=== PATIENT | female | born 1970 | race Caucasian/White ===

== ENCOUNTER 2016-11-30 11:39 | Emergency (ER) | payer MEDICAID ==
[~2016-11-30] VITALS: Ht 157.5 cm; Wt 122.0 kg
[~2016-11-30 11:39] MED LIST: BENZ1TAB PO; BUPR150T3 PO; DEPA250T2 PO; GEOD80CA PO; MELO15 PO; POLY119S PO; RISP2TAB2 PO; SERT-129 PO
[2016-11-30 11:41] VITALS: BP 140/81; PULSE 113; RESP 16; TEMP 98.1; O2SAT 95
[2016-11-30] MEDS ORDERED: LOTR15T TOPICAL (12:37)
--- NOTE | 2016-11-30 12:38 | PD ---
HPI Chief Complaint: Skin Problem Time Seen by Provider: 12:34 Travel History International Travel<30 days: No Contact w/Intl Traveler<30days: No Traveled to known affect area: No History of Present Illness HPI 46-year-old female presents to the emergency department for evaluation of an itchy rash. She states that she has it on the top of her left breast as well as the top of her right foot. She states is itchy. Not painful. She denies any fevers or chills. She denies any other complaints at this time. PFSH Past Medical History Asthma: Yes Autoimmune Disease: No Blood Disorders: No Bipolar Disorder: Yes Anxiety: Yes Depression: Yes Cancer: No Cardiovascular Problems: No Chemotherapy: No Developmental Delay: Yes Diminished Hearing: No Endocrine: No Gastrointestinal Disorders: No Genitourinary: No Immune Disorder: No Musculoskeletal: Yes Neurologic: No Psychiatric: Yes Reproductive: Yes Respiratory: Yes Immunizations Current: No Radiation Therapy: No Sickle Cell Disease: No ?: Not Menopausal: No : 2 Para: 2 Past Surgical History AICD: No Section: Yes (X 1) Cholecystectomy: Yes Joint Replacement: No Pacemaker: No Other Surgery: No Social History Alcohol Use: No (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.) Tobacco Use: No Substance Use: No (crack previous 5 yrs sober) Allergies-Medications (Allergen,Severity, Reaction): Coded Allergies: Milk (Verified Allergy, Severe, Hives, 11/30/16) Penicillin (Verified Allergy, Severe, Hives, 11/30/16) Reported Meds & Prescriptions Reported Meds & Active Scripts Active Miralax 119 Gm Bottle (Polyethylene Glycol) 119 Gm Powd 17 Gm PO DAILY 14 Days 17 GRAMS = 1 TABLESPOON DISSOLVED IN 4 TO 8 OUNCES OF BEVERAGE Reported Depakote Delayed-Release (Divalproex Sodium) 250 Mg Tabec 250 Mg PO HS Mobic 15 Mg Tab (Meloxicam) 15 Mg Tab 15 Mg PO DAILY Take after a meal Risperdal (Risperidone) 2 Mg Tab 2 Mg PO HS Sertraline 100 mg (Sertraline HCl) 100 Mg Tab 100 Mg PO DAILY Geodon (Ziprasidone) 80 Mg Cap 80 Mg PO BID Cogentin (Benztropine Mesylate) 2 Mg Tab 2 Mg PO BID Bupropion Hcl Xl (Bupropion HCl) 150 Mg Tab 150 Mg PO DAILY Review of Systems Except as stated in HPI: all other systems reviewed are Neg Physical Exam Narrative GENERAL: Well-developed well-nourished female patient, ambulatory. Afebrile. SKIN: Warm and dry. Patient has erythematous scaly rash to the top of the left breast and a small area to the top of the right foot. No evidence of cellulitis. HEAD: Normocephalic. Atraumatic. EYES: No scleral icterus. No injection or drainage. NECK: Supple, trachea midline. No JVD or lymphadenopathy. CARDIOVASCULAR: Regular rate and rhythm without murmurs, gallops, or rubs. RESPIRATORY: Breath sounds equal bilaterally. No accessory muscle use. Lungs sounds are clear to auscultation. MUSCULOSKELETAL: No cyanosis, or edema. Data Data Last Documented VS Vital Signs Date Time Temp Pulse Resp B/P Pulse Ox O2 Delivery O2 Flow Rate FiO2 11/30/16 11:41 98.1 113 16 140/81 95 MDM Medical Decision Making Medical Screen Exam Complete: Yes Emergency Medical Condition: Yes Medical Record Reviewed: Yes Differential Diagnosis Contact dermatitis versus ringworm versus cellulitis versus scabies versus insect bites Narrative Course 46-year-old female presents to the emergency department for evaluation of itchy rash started 3 days ago stumbled her left breast and the top of her right foot. No evidence of cellulitis on exam. Symptoms are mild and physical exam is reassuring. Patient will be discharged with a prescription for Lotrisone cream. She is instructed to take Benadryl [id number] and follow-up with her primary care physician. Patient agrees to this plan. The patient was discharged in stable condition with instructions, including return instructions and follow up instructions. Diagnosis Primary Impression: Dermatitis Referrals: Primary Care Physician call for appointment Patient Instructions: Dermatitis (ED), General Instructions Additional Instructions: Take [id number] Benadryl 25-50 mg every 6-8 hours as needed for itching. He is prescribed cream as directed. Follow-up with your primary care physician. Return to the emergency department for any acute worsening of symptoms. Med/Other Pt SpecificInfo: Prescription(s) given Scripts Betamethasone-Clotrimazole Topical (Lotrisone Topical)1-0.05% Cream1 Applic TOPICAL BID #45 GM Ref 0 Prov:Lacey Matt 11/30/16 Disposition: 01 DISCHARGE HOME Condition: Stable Lacey Matt Nov 30, 2016 12:38
[2016-11-30 12:39] VITALS: PULSE 84
== END 2016-11-30 12:53 | disposition home or self-care (01) ==
LOC: NEPB 11:39
DX: L30.9 Dermatitis, unspecified (principal); F41.8 Other specified anxiety disorders
CPT/HCPCS: 99282

== ENCOUNTER 2017-06-14 07:13 | Emergency (ER) | payer MEDICAID ==
[~2017-06-14] VITALS: Ht 157.5 cm; Wt 115.0 kg
[~2017-06-14 07:13] MED LIST changes: +LOTR15T TOPICAL
[2017-06-14 07:15] VITALS: BP 137/86; PULSE 93; RESP 16; TEMP 98.1; O2SAT 98
--- NOTE | 2017-06-14 07:35 | PD ---
HPI Chief Complaint: Hip Injury Time Seen by Provider: 07:22 Travel History International Travel<30 days: No Contact w/Intl Traveler<30days: No Traveled to known affect area: No History of Present Illness HPI Patient comes emergency Department complaining of intermittent right low back pain ongoing for a month. Pain is sharp stabbing like in nature and occasionally radiates into her right hip. Patient denies any trauma, history of IV drug use, fevers, loss or change in bowel or bladder, abdominal pain, numbness or tingling anywhere, chest pain, shortness of breath, or previous episodes like this. Patient states she been using [id number] pain medications that seemed to help some, but it is not going away. Patient states she is unable to get in with her primary care doctor today so came to the emergency department instead. Pain is worse with certain movement. PFSH Past Medical History Asthma: Yes Autoimmune Disease: No Blood Disorders: No Bipolar Disorder: Yes Anxiety: Yes Depression: Yes Cancer: No Cardiovascular Problems: No Chemotherapy: No Developmental Delay: Yes Diminished Hearing: No Endocrine: No Gastrointestinal Disorders: No Genitourinary: No Immune Disorder: No Musculoskeletal: Yes Neurologic: No Psychiatric: Yes Reproductive: Yes Respiratory: Yes (ASTHMA) Immunizations Current: No Radiation Therapy: No Sickle Cell Disease: No Menopausal: No : 2 Para: 2 Past Surgical History AICD: No Section: Yes (X 1) Cholecystectomy: Yes Joint Replacement: No Pacemaker: No Other Surgery: No Social History Alcohol Use: No (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.) Tobacco Use: No Substance Use: No (crack previous 5 yrs sober) Allergies-Medications (Allergen,Severity, Reaction): Coded Allergies: milk (Verified Allergy, Severe, Hives, 06/14/17) penicillin G (Verified Allergy, Severe, Hives, 06/14/17) Reported Meds & Prescriptions Reported Meds & Active Scripts Active Medrol Dosepak (Methylprednisolone) 4 Mg Dspk 4 Mg PO DIRECTED Per Pharmacist direction Lotrisone Topical (Betamethasone/Clotrimazole) 1-0.05% Cream 1 Applic TOPICAL BID Miralax 119 Gm Bottle (Polyethylene Glycol) 119 Gm Powd 17 Gm PO DAILY 14 Days 17 GRAMS = 1 TABLESPOON DISSOLVED IN 4 TO 8 OUNCES OF BEVERAGE Reported Depakote Delayed-Release (Divalproex Sodium) 250 Mg Tabec 250 Mg PO HS Mobic 15 Mg Tab (Meloxicam) 15 Mg Tab 15 Mg PO DAILY Take after a meal Risperdal (Risperidone) 2 Mg Tab 2 Mg PO HS Sertraline 100 mg (Sertraline HCl) 100 Mg Tab 100 Mg PO DAILY Geodon (Ziprasidone) 80 Mg Cap 80 Mg PO BID Benztropine Mesylate 2 Mg Tab 2 Mg PO BID Bupropion Hcl Xl (Bupropion HCl) 150 Mg Tab 150 Mg PO DAILY Review of Systems Except as stated in HPI: all other systems reviewed are Neg Physical Exam Narrative GENERAL: Well-developed, overly nourished, in no acute distress, and non-ill appearing. SKIN: Focused skin assessment warm and dry. HEAD: Atraumatic. Normocephalic. EYES: Pupils equal and round. EOMI. No scleral icterus. No injection or drainage. ENT: No nasal bleeding or discharge. Mucous membranes pink and moist. NECK: Trachea midline. Supple. No nuclear rigidity. CARDIOVASCULAR: Dorsal pulses 2+, intact, and equal bilaterally. No pedal edema. RESPIRATORY: No accessory muscle use. No respiratory distress. MUSCULOSKELETAL: No obvious deformities. No clubbing. No cyanosis. No edema. Full range of motion. Normal gait. No tenderness or crepitus over midline of the lumbar spine. Patient reports tenderness over right SI joint. Straight leg test negative bilaterally. Hip: FROM and equal BL with passive flexion, extension, Abduction, Adduction, and internal/external rotation. Pulses equal BL distal to injury. FROM distal to injury and equal BL. Strength distal to injury equal BL. NV intact distal to injury and equal BL. Plantar flexion and dorsal flexion equal BL. Dorsal pulses equal BL. Sensation equal BL 1st web space. NEUROLOGICAL: Awake and alert. No obvious cranial nerve deficits. Motor grossly within normal limits. Normal speech. PSYCHIATRIC: Appropriate mood and affect; insight and judgment normal. Data Data Last Documented VS Vital Signs Date Time Temp Pulse Resp B/P (MAP) Pulse Ox O2 Delivery O2 Flow Rate FiO2 06/14/17 07:44 06/14/17 07:15 98.1 93 16 98 MDM Medical Decision Making Medical Screen Exam Complete: Yes Emergency Medical Condition: Yes Differential Diagnosis Fracture, strain, contusion, sciatica, musculoskeletal pain, other Narrative Course The patient presented complaining of back pain. There was no history of recent fall or trauma. There was no evidence to support genitourinary etiology. There is also no evidence to suggest vascular pathology such as AAA dissection. No fevers or other evidence to suspect infectious processes, abscess, osteomyelitis etc. The patients neurological exam is normal with normal motor and sensory. There is no saddle paresthesias reported and no bowel or bladder incontinence or retention. I suspect the pain is mechanical in nature. Clinical suspicion, plan of care and management was discussed with the patient. The patient was instructed to follow up with their health care provider. The patient was also instructed to return if the pain worsened, changed, or developed weakness or bowel or bladder trouble. The patient agreed with plan. Patient in no obvious distress upon re-evaluation. Patient was asked if they wanted to speak to my attending, which the patient did not wish to do at this time. Any questions/concerns in reference to patient diagnosis/condition discussed and clarified prior to patient's discharge. Reinforced sheer importance of close follow up with patient's primary physician or primary care clinic and/or orthopedics. Instructed patient to return to ED immediately, if symptoms return/worsen. Pt showed understanding of above instructions. Further instructions and recommendations were detailed in discharge paperwork. Pt ambulated without difficulty out of ED at discharge. Diagnosis Primary Impression: Low back pain Qualified Codes: M54.5 - Low back pain Patient Instructions: Acute Low Back Pain (ED), General Instructions, Lower Back Exercises (ED), Sciatica (ED) Additional Instructions: Follow-up with your primary care physician and/or orthopedics next week for reevaluation. Take all medication as prescribed. Return to the emergency department if symptoms get worse. Med/Other Pt SpecificInfo: Prescription(s) given Scripts Methylprednisolone Dosepak (Medrol Dosepak) 4 Mg Dspk 4 MG PO DIRECTED, #1 DSPK 0 Refills Per Pharmacist direction Prov: Holly Ovalles MD 06/14/17 Disposition: 01 DISCHARGE HOME Condition: Stable Calos Boone Jun 14, 2017 07:35
[2017-06-14] MEDS ORDERED: MEDR4PAK PO (07:36)
== END 2017-06-14 07:48 | disposition home or self-care (01) ==
LOC: NEPK 07:13
DX: M54.5 Low back pain (principal); J45.909 Unspecified asthma, uncomplicated; F31.9 Bipolar disorder, unspecified; F41.9 Anxiety disorder, unspecified; Z88.0 Allergy status to penicillin; Z79.899 Other long term (current) drug therapy
CPT/HCPCS: 99283

== ENCOUNTER 2017-10-15 09:12 | Emergency (ER) | payer MEDICAID | END 2017-10-15 10:46 | disposition home or self-care (01) | LOC: NEPK 09:12 | DX: M25.562 Pain in left knee (principal); F31.9 Bipolar disorder, unspecified | CPT/HCPCS: 73564; 99283 ==

== ENCOUNTER 2017-12-20 09:24 | Emergency (ER) | payer MEDICAID ==
[~2017-12-20] VITALS: Ht 157.5 cm; Wt 110.0 kg
[~2017-12-20 09:24] MED LIST changes: +IBUP1TAB7 PO; +MEDR4PAK PO
[2017-12-20 09:44] VITALS: BP 114/75; PULSE 96; RESP 19; TEMP 98.3; O2SAT 100
--- NOTE | 2017-12-20 10:39 | PD ---
HPI Chief Complaint: Pain: Acute or Chronic Time Seen by Provider: 10:17 Travel History International Travel<30 days: No Contact w/Intl Traveler<30days: No Traveled to known affect area: No History of Present Illness HPI 47-year-old female presents to the emergency department with complaint of bilateral knee pain after she tripped and fell a few weeks ago. She lives in an assisted living facility. She says she has had her left knee x-rayed after the fall and it showed fluid in her knee and arthritis. They did not x-ray her right knee. She reports that it is very painful to stand on and she is having difficulty walking. She says she feels like her knees are going to get out she is going to fall. She has been using a walker for support. Reports decreased range of motion of both knees. Denies paresthesias, loss of sensation to bilateral lower extremities. Right knee pain is posterior. Left knee pain is anterior. Rates pain 10/10. Says she has been taking aspirin for symptom management. Pain is constant and aggravated with palpation, movement, ambulation. Has a primary care provider she can follow-up with. Allergies to milk and penicillin. Says she has a psychiatric past medical history. Her medication list was sent from the facility, but all the names of the medications she is on are cut off and cannot verify what medications she is currently on. On the second page it is noted that she has ibuprofen and tramadol ordered as needed and it shows they have not been given. No other medical complaints. No other modifying factors or associated signs and symptoms. PFSH Past Medical History Asthma: Yes Autoimmune Disease: No Blood Disorders: No Bipolar Disorder: Yes Anxiety: Yes Depression: Yes Cancer: No Cardiovascular Problems: No Chemotherapy: No Developmental Delay: Yes Diminished Hearing: No Endocrine: No Gastrointestinal Disorders: No Genitourinary: No Immune Disorder: No Musculoskeletal: Yes Neurologic: No Psychiatric: Yes Reproductive: Yes Respiratory: Yes (ASTHMA) Immunizations Current: No Radiation Therapy: No Sickle Cell Disease: No ?: Not Menopausal: No : 2 Para: 2 Past Surgical History AICD: No Section: Yes (X 1) Cholecystectomy: Yes Joint Replacement: No Pacemaker: No Other Surgery: No Social History Alcohol Use: No (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.) Tobacco Use: No Substance Use: No (crack previous 5 yrs sober) Allergies-Medications (Allergen,Severity, Reaction): Coded Allergies: milk (Verified Allergy, Severe, Hives, 12/20/17) penicillin G (Verified Allergy, Severe, Hives, 12/20/17) Reported Meds & Prescriptions Reported Meds & Active Scripts Active Ibuprofen 800 Mg Tab 800 Mg PO Q8H PRN Medrol Dosepak (Methylprednisolone) 4 Mg Dspk 4 Mg PO DIRECTED Per Pharmacist direction Lotrisone Topical (Betamethasone/Clotrimazole) 1-0.05% Cream 1 Applic TOPICAL BID Miralax 119 Gm Bottle (Polyethylene Glycol) 119 Gm Powd 17 Gm PO DAILY 14 Days 17 GRAMS = 1 TABLESPOON DISSOLVED IN 4 TO 8 OUNCES OF BEVERAGE Reported Depakote Delayed-Release (Divalproex Sodium) 250 Mg Tabec 250 Mg PO HS Mobic 15 Mg Tab (Meloxicam) 15 Mg Tab 15 Mg PO DAILY Take after a meal Risperdal (Risperidone) 2 Mg Tab 2 Mg PO HS Sertraline 100 mg (Sertraline HCl) 100 Mg Tab 100 Mg PO DAILY Geodon (Ziprasidone) 80 Mg Cap 80 Mg PO BID Benztropine Mesylate 2 Mg Tab 2 Mg PO BID Bupropion Hcl Xl (Bupropion HCl) 150 Mg Tab 150 Mg PO DAILY Review of Systems Except as stated in HPI: all other systems reviewed are Neg Physical Exam Narrative GENERAL: Well-nourished, well-developed female patient, in no acute distress; afebrile, nontoxic-appearing SKIN: Warm and dry. Small bruise noted to the patellar aspect of the left knee. HEAD: Atraumatic. Normocephalic. EYES: Pupils equal and round. No scleral icterus. No injection or drainage. ENT: Mucosa pink and moist. Airway patent. NECK: Trachea midline. CARDIOVASCULAR: Regular rate. RESPIRATORY: No accessory muscle use. GASTROINTESTINAL: Obese. MUSCULOSKELETAL: Bilateral knees are nonedematous, nonerythematous; right knee without ecchymosis; left knee with small approximately 2 cm in diameter bruise; flexion to approximately 45 bilaterally; right knee point tenderness to the posterior aspect; left knee with tenderness on palpation to the patellar aspect ; joint stable with negative drawer test; no obvious deformity. Bilateral lower extremity is supple and non-tense with 2+ pedal pulse and sensory intact and without erythema or edema. NEUROLOGICAL: Awake and alert. Oriented 3. No obvious cranial nerve deficits. Motor grossly within normal limits. Normal speech. PSYCHIATRIC: Appropriate mood and affect; insight and judgment normal. Data Data Last Documented VS Vital Signs Date Time Temp Pulse Resp B/P (MAP) Pulse Ox O2 Delivery O2 Flow Rate FiO2 12/20/17 09:44 98.3 96 19 114/75 (88) 100 Orders Orders Knee, Complete (4vws) (12/20/17 10:33) Tramadol (Ultram) (12/20/17 10:45) Ed Discharge Order (12/20/17 11:10) MDM Medical Decision Making Medical Screen Exam Complete: Yes Emergency Medical Condition: Yes Medical Record Reviewed: Yes Differential Diagnosis Knee contusion, knee strain, knee pain, knee injury Narrative Course 47-year-old female with bilateral knee pain. She reports a mechanical fall a few weeks ago. After the fall she did have her left knee x-rayed and was told she had fluid in her knee and had arthritis. She says they did not x-ray her right knee. She was told that she needed an MRI. She has not followed up with orthopedics. She comes from an assisted living facility and has a walker for support. I will x-ray the right knee to rule out acute findings. Patient has tramadol and ibuprofen listed on her med sheet at the facility. Tramadol ordered. Right knee x-ray ordered. 1112: Right knee x-ray with no acute findings. Patient provided a copy of the x -ray report. Instructed patient to follow-up with orthopedics. Patient has a walker for support. Instructed patient to follow up with primary care provider. Patient verbalizes understanding and agreement with treatment plan. Patient is medically cleared and stable for discharge. Discussed reasons to return to the emergency department. Patient agrees with treatment plan. The patients vital signs are stable and the patient is stable for outpatient follow- up and treatment. Patient discharged home, stable and in no acute distress. Diagnosis Primary Impression: Bilateral knee pain Qualified Codes: M25.561 - Pain in right knee; M25.562 - Pain in left knee Referrals: Orthopaedic Surgeon Primary Care Physician Patient Instructions: Arthritis (ED), General Instructions, Knee Pain (ED) Additional Instructions: Tylenol or ibuprofen as needed and as directed to reduce pain and inflammation Rest, ice, compress, and elevate extremity to decrease pain and inflammation Knee brace for support Walker/wheelchair for support Avoid aggravating activity; increase activity as tolerated Follow-up with primary care provider Follow-up with orthopedics Med/Other Pt SpecificInfo: No Change to Meds, No Meds Exist/No RX given Disposition: 01 DISCHARGE HOME Condition: Stable Alexia Mancuso Dec 20, 2017 10:39
[2017-12-20] MEDS ORDERED: traMADol HCL 50 MG TAB PO ONE (10:45)
--- NOTE | 2017-12-20 11:06 | RADRPT ---
EXAM DATE/TIME: 12/20/2017 10:50 [facility] COMPARISON: No previous studies available for comparison. INDICATIONS : Right posterior knee pain, fell MEDICAL HISTORY : Arthritis. SURGICAL HISTORY : None. ENCOUNTER: Initial ACUITY: 1 month PAIN SCORE: 7/10 LOCATION: Right Knee FINDINGS: Four view examination of the right knee demonstrates no evidence of fracture or dislocation. Bony mi neralization is normal. The articular surfaces are intact. The suprapatellar soft tissues have a no rmal configuration. CONCLUSION: Normal examination for a patient of this age. Fei Milian MD on December 20, 2017 at 11:04 Board Certified Radiologist. This report was verified electronically.
== END 2017-12-20 11:25 | disposition home or self-care (01) ==
LOC: NEPK 09:24
DX: M25.562 Pain in left knee (principal); M25.561 Pain in right knee; J45.909 Unspecified asthma, uncomplicated; F31.9 Bipolar disorder, unspecified; F41.9 Anxiety disorder, unspecified; W01.0XXA Fall on same level from slipping, tripping and stumbling without subsequent striking against object, initial encounter; Z79.899 Other long term (current) drug therapy; Z88.0 Allergy status to penicillin
CPT/HCPCS: 73564; 99283